=== PATIENT | female | born 1965 | race Hispanic/Latino ===

== ENCOUNTER 2018-04-21 19:11 | Observation (INO) | payer MEDICARE ==
[2018-04-21 19:11] VITALS: BMI 42.9
[2018-04-21] MEDS ORDERED: Sodium Chloride 0.9% 500 ML IV STA (20:19)
[2018-04-21 21:06] LABS: BASO # 0.04 K/mm3 (0.0-2.0); BASO % 0.3 % (0.0-3.0); EOS # 0.3 (0.0-0.7); EOS % 1.7 % (1.5-5.0); GRAN # 9.19 (1.4-6.5); GRAN % 61.4 % (50.0-68.0); HEMOGLOBIN 14.8 g/dL (12.0-16.0); LYMPH # 4.6 (1.2-3.4); LYMPH % 30.5 % (22.0-35.0); MEAN CELL VOLUME 84.8 fl (80.0-105.0); MEAN CORPUSCULAR HEMOGLOBIN 28.5 pg (25.0-35.0); MEAN CORPUSCULAR HGB CONC 33.6 g/dl (31.0-37.0); MEAN PLATELET VOLUME 8.9 fl (7.0-11.0); MONO # 0.9 (0.1-0.6); MONO % 6.1 % (1.0-6.0); RBC 5.2 10^6/uL (3.5-6.1); RED CELL DISTRIBUTION WIDTH 14.3 % (11.5-14.5)
[2018-04-21 21:16] LABS: ALB/GLOB RATIO 1.2 (1.1-1.8); ALBUMIN 4.2 g/dL (3.0-4.8); ALT/SGPT 33 U/L (7-56); AST/SGOT 29 U/L (14-36); BLOOD UREA NITROGEN 8 mg/dL (7-21); CALCIUM 9.6 mg/dL (8.4-10.5); GFR NON-AFRICAN AMERICAN 58; LIPASE 23 U/L (23-300)
[2018-04-21 23:54] LABS: PH,URINE 7.5 (4.7-8.0); URINE BILIRUBIN NEGATIVE (NEGATIVE); URINE BLOOD TRACE-INTACT (NEGATIVE); URINE GLUCOSE (UA) NEGATIVE (NEGATIVE); URINE LEUKOCYTE ESTERASE TRACE Leu/uL (NEGATIVE); URINE PROTEIN TRACE mg/dL (<30 mg/dL); URINE UROBILINOGEN 0.2 E.U./dL (<1 E.U./dL)
[2018-04-21 23:58] LABS: URINE APPEARANCE CLEAR (CLEAR); URINE COLOR YELLOW (YELLOW)
[2018-04-22 00:08] LABS: URINE AMORPHOUS SEDIMENT FEW; URINE BACTERIA RARE (NEG); URINE RBC 0 - 2 /hpf (0-2)
[2018-04-22] MEDS ORDERED: cefTRIAXone 1 gm 1 GM/100 ML BAG IVPB STA ×2 (00:44→19:00)
--- NOTE | 2018-04-22 00:44 | ED PDOC ---
Arrival/HPI <Jagdeep Rivera - Last Filed: 04/22/18 01:05> - General Historian: Patient - History of Present Illness Narrative History of Present Illness (Text): 04/22/18 01:28 52-year-old female presents today with right-sided abdominal pain that started yesterday. Patient states the pain is along the entire right side of the abdomen. She denies nausea or vomiting. Denies diarrhea or constipation. She denies fevers or chills. No chest pain or shortness of breath. She denies any urinary symptoms. Patient states the pain is localized to the right side of the abdomen and does not radiate to the back. She denies any back pain. No medications have been taken for pain at home. No other complaints <Ofelia Angelo - Last Filed: 04/22/18 01:32> - General Chief Complaint: Abdominal Pain Time Seen by Provider: 04/21/18 20:19 Past Medical History - Provider Review Nursing Documentation Reviewed: Yes - Travel History Have you recently traveled outside [place] w/in the past 3 mons?: No - Infectious Disease Hx of Infectious Diseases: None - Tetanus Immunization Tetanus Immunization: Unknown - Past Medical History Past Medical History: No Previous - Cardiac Hx Pacemaker: No - Pulmonary Hx Respiratory Disorders: No - Neurological Hx Neurological Disorder: No - HEENT Hx HEENT Disorder: No - Renal Hx Renal Disorder: Yes Hx Kidney Stones: Yes - Endocrine/Metabolic Hx Endocrine Disorders: No - Hematological/Oncological Hx Blood Disorders: No - Integumentary Hx Dermatological Disorder: No - Musculoskeletal/Rheumatological Hx Musculoskeletal Disorders: Yes Hx Arthritis: Yes - Gastrointestinal Hx Gastrointestinal Disorders: Yes Hx Gall Bladder Disease: Yes (gallstones) - Genitourinary/Gynecological Hx Genitourinary Disorders: No - Psychiatric Hx Anxiety: No Hx Bipolar Disorder: No Hx Depression: No Hx Post Traumatic Stress Disorder: No Hx Schizophrenia: No Hx Substance Use: No - Surgical History Hx Coronary Artery Bypass Graft: No Hx Coronary Stent: No Hx Tonsillectomy: Yes (ADENOIDECTOMY) Other/Comment: R ankle - Anesthesia Hx Anesthesia: Yes Hx Anesthesia Reactions: No Hx Malignant Hyperthermia: No - Suicidal Assessment Feels Threatened In Home Enviroment: No <Ofelia Angelo - Last Filed: 04/22/18 01:32> Family/Social History - Physician Review Nursing Documentation Reviewed: Yes Family/Social History: Unknown Family HX Smoking Status: Former Smoker Hx Alcohol Use: No Hx Substance Use: No Hx Substance Use Treatment: No <Ofelia Angelo - Last Filed: 04/22/18 01:32> Allergies/Home Meds <Jagdeep Rivera - Last Filed: 04/22/18 01:05> <Ofelia Angelo - Last Filed: 04/22/18 01:32> Allergies/Adverse Reactions: Allergies No Known Allergies Allergy (Verified 04/28/16 07:32) Review of Systems - Review of Systems Constitutional: absent: Fatigue, Fevers Respiratory: absent: SOB, Cough Cardiovascular: absent: Chest Pain, Palpitations Gastrointestinal: Abdominal Pain. absent: Constipation, Diarrhea, Nausea, Vomiting Genitourinary Female: absent: Dysuria, Frequency, Hematuria, Vaginal Discharge Musculoskeletal: absent: Arthralgias, Back Pain, Neck Pain Skin: absent: Rash, Pruritis Neurological: absent: Headache, Dizziness Psychiatric: absent: Anxiety, Depression, Suicidal Ideation <Ofelia Angelo - Last Filed: 04/22/18 01:32> Physical Exam Vital Signs Temp Pulse Resp BP Pulse Ox 04/21/18 20:28 85 18 132/78 96 04/21/18 19:39 98.0 F 93 H 16 134/88 95 <Jagdeep Rivera - Last Filed: 04/22/18 01:05> Vital Signs Reviewed: Yes Vital Signs Temp Pulse Resp BP Pulse Ox 04/21/18 20:28 85 18 132/78 96 04/21/18 19:39 98.0 F 93 H 16 134/88 95 Temperature: Afebrile Blood Pressure: Normal Pulse: Regular Respiratory Rate: Normal Appearance: Positive for: Well-Appearing, Non-Toxic, Comfortable Pain Distress: None Mental Status: Positive for: Alert and Oriented X 3 - Systems Exam Head: Present: Atraumatic Mouth: Present: Moist Mucous Membranes Neck: Present: Normal Range of Motion Respiratory/Chest: Present: Clear to Auscultation, Good Air Exchange. No: Re spiratory Distress, Accessory Muscle Use Cardiovascular: Present: Regular Rate and Rhythm, Normal S1, S2. No: Murmurs Abdomen: Present: Tenderness (+ minimal rlq abd tenderness). No: Distention, Peritoneal Signs, Rebound, Guarding Back: Present: Normal Inspection. No: CVA Tenderness, Midline Tenderness, Paraspinal Tenderness Upper Extremity: Present: Normal ROM Lower Extremity: Present: Normal ROM Neurological: Present: GCS=15, Speech Normal Skin: Present: Warm, Dry, Normal Color. No: Rashes Psychiatric: Present: Alert, Oriented x 3 <Ofelia Angelo - Last Filed: 04/22/18 01:32> Medical Decision Making - Lab Interpretations Lab Results: 04/21/18 21:01 04/21/18 21:01 Lab Results 04/21/18 23:44: Urine Color Yellow, Urine Appearance Clear, Urine pH 7.5, Ur Specific [place] 1.010, Urine Protein Trace H, Urine Glucose (UA) Negative, Urine Ketones Negative, Urine Blood Trace-intact H, Urine Nitrate Negative, Urine Bilirubin Negative, Urine Urobilinogen 0.2, Ur Leukocyte Esterase Trace H, Urine RBC 0 - 2, Urine WBC 1 - 3, Ur Epithelial Cells 1 - 3, Amorphous Sediment Few, Urine Bacteria Rare 04/21/18 21:01: WBC 15.0 H D, RBC 5.20, Hgb 14.8, Hct 44.1, MCV 84.8, MCH 28.5, MCHC 33.6, RDW 14.3, Plt Count 347, MPV 8.9, Gran % 61.4, Lymph % (Auto) 30.5, [place] % (Auto) 6.1 H, Eos % (Auto) 1.7, Baso % (Auto) 0.3, Gran # 9.19 H, Lymph # (Auto) 4.6 H, [place] # (Auto) 0.9 H, Eos # (Auto) 0.3, Baso # (Auto) 0.04 04/21/18 21:01: Sodium 141, Potassium 4.1, Chloride 101, Carbon Dioxide 31, Anion Gap 13, BUN 8, Creatinine 1.0, Est GFR ( Amer) > 60, Est GFR (Non- Af Amer) 58, Random Glucose 111 H, Calcium 9.6, Total Bilirubin 0.4, AST 29, ALT 33, Alkaline Phosphatase 94, Total Protein 7.8, Albumin 4.2, Globulin 3.6, Albumin/Globulin Ratio 1.2, Lipase 23 - RAD Interpretation Radiology Orders: 04/21/18 20:19 CHEST PORTABLE [RAD] Stat 04/21/18 21:01 ABD & PELVIS IV CONTRAST ONLY [CT] Stat - Medication Orders Current Medication Orders: Ceftriaxone Sodium (Rocephin 1 Gram Ivpb) 1 gm in 100 mls @ 200 mls/hr IVPB STAT STA; Protocol Stop: 04/22/18 01:13 Discontinued Medications Sodium Chloride (Sodium Chloride 0.9%) 500 mls @ 999 mls/hr IV .Q31M STA Stop: 04/21/18 20:49 Last Admin: 04/21/18 21:08 Dose: 999 mls/hr eMAR Start Stop Document 04/21/18 21:08 HI (Rec: 04/21/18 21:08 HI [id number]) Intravenous Solution Start Date 04/21/18 Start Time 21:08 Ketorolac Tromethamine (Toradol) 30 mg IVP STAT STA Stop: 04/22/18 00:45 <Jagdeep Rivera - Last Filed: 04/22/18 01:05> ED Course and Treatment: 04/22/18 00:33 Patient is nontoxic well appearing with stable vital signs presenting with right sided abdominal pain CBC wbc; 15.0 CMP: wnl Lipase wnl cxr; wnl, no free air. Urinalysis: + leukocytes, + blood CAT scan: Findings Lower thorax There is evidence of nodular scarring at the left lung base. There is scarring noted in the right lung base. Small hiatal hernia is seen. Liver Unremarkable. No gross lesion or ductal dilatation. Gallbladder and bile ducts There is a 1.8 cm peripherally calcified gallstone present. Gallbladder is partially contracted. Consider correlation with right upper quadrant ultrasound. Pancreas Unremarkable. No gross lesion or ductal dilatation. Spleen Unremarkable. Adrenals Unremarkable. No mass. Kidneys and ureters There is a 2 cm cyst present in the mid pole or the right kidney. There is a 6 x 3 mm non-obstructing calculus noted in the lower pole of the right kidney. There is a 9 x 6 mm non-obstructing calculus noted in the mid pole of the right kidney. There is a 5 x 3 mm non-obstructing calculus noted in the mid pole of the left kidney. There is a 3 x 1 mm elongated calculus noted in the proximal r ight ureter producing mild hydronephrosis. Vasculature Unremarkable. No aortic aneurysm. Bowel Incidentally noted markedly thick walled duodenum and jejunum consistent with severe entities. This is likely related to chronic inflammatory etiology. Appendix Normal appendix. Peritoneum Unremarkable. No free fluid. No free air. Lymph nodes Unremarkable. No enlarged lymph nodes. Bladder Unremarkable. Reproductive Uterus and ovaries are unremarkable. Bones No acute fracture. Other Findings None. Impression 1. A 1.8 cm peripherally calcified gallstone. Consider correlation with right upper quadrant ultrasound. 2. Multiple bilateral renal calculi and a 3 x 1 mm elongated calculus in the proximal right ureter producing mild hydronephrosis. 3. Markedly thick-walled duodenum and jejunum consistent with severe entities, likely related to chronic inflammatory etiology. 4. Evidence of nodular scarring at the left lung base and scarring in the right lung base. 5. Small hiatal hernia. Patient reassessment: pt feeling better. no distress. rocephin given IV. toradol for pain. case discussed with dr. arora; accepts admission ;will consult dr. monterroso . Discussed all results with patient in depth Impression: kidney stone, hydronephrosis, abdominal pain, leukocytosis admit to med/surg observational status - Lab Interpretations Lab Results: 04/21/18 21:01 04/21/18 21:01 Lab Results 04/21/18 23:44: Urine Color Yellow, Urine Appearance Clear, Urine pH 7.5, Ur Specific [place] 1.010, Urine Protein Trace H, Urine Glucose (UA) Negative, Urine Ketones Negative, Urine Blood Trace-intact H, Urine Nitrate Negative, Urine Bilirubin Negative, Urine Urobilinogen 0.2, Ur Leukocyte Esterase Trace H, Urine RBC 0 - 2, Urine WBC 1 - 3, Ur Epithelial Cells 1 - 3, Amorphous Sediment Few, Urine Bacteria Rare 04/21/18 21:01: WBC 15.0 H D, RBC 5.20, Hgb 14.8, Hct 44.1, MCV 84.8, MCH 28.5, MCHC 33.6, RDW 14.3, Plt Count 347, MPV 8.9, Gran % 61.4, Lymph % (Auto) 30.5, [place] % (Auto) 6.1 H, Eos % (Auto) 1.7, Baso % (Auto) 0.3, Gran # 9.19 H, Lymph # (Auto) 4.6 H, [place] # (Auto) 0.9 H, Eos # (Auto) 0.3, Baso # (Auto) 0.04 04/21/18 21:01: Sodium 141, Potassium 4.1, Chloride 101, Carbon Dioxide 31, Anion Gap 13, BUN 8, Creatinine 1.0, Est GFR ( Amer) > 60, Est GFR (Non- Af Amer) 58, Random Glucose 111 H, Calcium 9.6, Total Bilirubin 0.4, AST 29, ALT 33, Alkaline Phosphatase 94, Total Protein 7.8, Albumin 4.2, Globulin 3.6, Albumin/Globulin Ratio 1.2, Lipase 23 - RAD Interpretation Radiology Orders: 04/21/18 20:19 CHEST PORTABLE [RAD] Stat 04/21/18 21:01 ABD & PELVIS IV CONTRAST ONLY [CT] Stat - Medication Orders Current Medication Orders: Discontinued Medications Sodium Chloride (Sodium Chloride 0.9%) 500 mls @ 999 mls/hr IV .Q31M STA Stop: 04/21/18 20:49 Last Admin: 04/21/18 21:08 Dose: 999 mls/hr eMAR Start Stop Document 04/21/18 21:08 HI (Rec: 04/21/18 21:08 HI [id number]) Intravenous Solution Start Date 04/21/18 Start Time 21:08 <Ofelia Angelo - Last Filed: 04/22/18 01:32> - PA / ROLL FILLER / Resident Statement [facility] has reviewed & agrees with the documentation as recorded. [facility] has examined the patient and agrees with the treatment plan. <Jagdeep Rivera - Last Filed: 04/22/18 01:05> Disposition/Present on Arrival <Jagdeep Rivera - Last Filed: 04/22/18 01:05> - Present on Arrival Any Indicators Present on Arrival: No History of DVT/PE: No History of Uncontrolled Diabetes: No Urinary Catheter: No History of Decub. Ulcer: No History Surgical Site Infection Following: None - Disposition Have Diagnosis and Disposition been Completed?: Yes Disposition Time: 00:30 Patient Plan: Observation <Ofelia Angelo - Last Filed: 04/22/18 01:32> - Disposition Diagnosis: Kidney stone, Hydronephrosis, Leukocytosis, Abdominal pain Disposition: HOSPITALIZED Patient Problems: Current Active Problems Problem Status Onset Kidney stone Acute Condition: FAIR
--- NOTE | 2018-04-22 10:19 | CT ---
Date of service: 04/21/2018 PROCEDURE: CT Abdomen and Pelvis with and without intravenous contrast HISTORY: right sided abd pain COMPARISON: 04/13/2014 TECHNIQUE: Axial images of the abdomen were obtained in the pre contrast, portal venous and delayed phases of enhancement. Coronal and sagittal reformats were generated. Contrast dose: Radiation dose: Total exam DLP = 1134.1 mGy-cm. This CT exam was performed using one or more of the following dose reduction techniques: Automated exposure control, adjustment of the mA and/or kV according to patient size, and/or use of iterative reconstruction technique. FINDINGS: LOWER THORAX: Mild discoid atelectasis at the left base. LIVER: Unremarkable. No gross lesion or ductal dilatation. GALLBLADDER AND BILE DUCTS: Gallstones. PANCREAS: Unremarkable. No gross lesion or ductal dilatation. SPLEEN: Unremarkable. ADRENALS: Unremarkable. No mass. KIDNEYS AND URETERS: Bilateral nephrolithiasis with a questionable complex cyst in the upper pole the right kidney measuring 2.8 cm. VASCULATURE: Unremarkable. No aortic aneurysm. No aortic atherosclerotic calcification or mural plaque present. BOWEL: Unremarkable. No obstruction. No gross mural thickening. APPENDIX: Normal appendix. PERITONEUM: Unremarkable. No free fluid. No free air. LYMPH NODES: Unremarkable. No enlarged lymph nodes. BLADDER: Unremarkable. REPRODUCTIVE: Unremarkable. BONES: No acute fracture. OTHER FINDINGS: None. IMPRESSION: Bilateral nephrolithiasis with a questionable complex cyst in the upper pole the right kidney measuring 2.8 cm. Recommend correlation with MRI of the abdomen with without contrast further assessment. Gallstones
--- NOTE | 2018-04-22 10:40 | RAD ---
Date of service: 04/21/2018 HISTORY: abd pain COMPARISON: Chest radiographs 01/07/2016. FINDINGS: LUNGS: No active pulmonary disease. PLEURA: No significant pleural effusion identified, no pneumothorax apparent. CARDIOVASCULAR: No aortic atherosclerotic calcification present. Normal cardiac size. No pulmonary vascular congestion. OSSEOUS STRUCTURES: Multilevel thoracic spondylosis reiterated. Reiteration of incidentally captured anterior cervical spinal fusion hardware. VISUALIZED UPPER ABDOMEN: Normal. OTHER FINDINGS: None. IMPRESSION: No interval acute cardiopulmonary disease appreciable.
[2018-04-22] MEDS ORDERED: HYDROmorphone 2 mg/ml ISec IVP PRN (10:48)
[2018-04-22] MEDS ORDERED: Dextrose 5%/0.45% NS 1,000 ML IV SCH (11:00)
--- NOTE | 2018-04-22 11:03 | CARD ---
APPROVED REPORT Date of service: 04/21/2018 EKG Measurement Heart [id number] <Conclusion> Normal sinus rhythm Left bundle branch block No change
--- NOTE | 2018-04-22 15:11 | RAD ---
Date of service: 04/22/2018 HISTORY: STONES PASSED PAIN REDUCED COMPARISON: 04/24/2014 FINDINGS: BOWEL: Normal bowel gas pattern. 17 mm right upper quadrant calcification as well as smaller calculi, likely renal in origin. There is an eggshell calcification in the right upper quadrant most likely a calcified gallstone. No other abnormal intra-abdominal calcifications. BONES: Normal. OTHER FINDINGS: None. IMPRESSION: No active disease.
[2018-04-22] MEDS ORDERED: Midazolam 2 MG/2 ML VIAL ONE (16:58)
[2018-04-22] MEDS ORDERED: Iohexol 240 (50 ml) ONE (16:58)
[2018-04-22] MEDS ORDERED: Propofol 10 mg/ml Inj (20 ML) ONE (16:58)
[2018-04-22] MEDS ORDERED: Lidocaine PF 2% (5 ml) Inj (For Cardiac Arrhy) ONE (16:59)
[2018-04-22] MEDS ORDERED: HYDROmorphone 0.5 mg/0.5 ml ISec IVP PRN (17:32)
[2018-04-22 17:40] VITALS: O2SAT 98
[2018-04-22] MEDS ORDERED: Lactated Ringer's 1,000 ML IV SCH (17:45)
[2018-04-22 20:43] VITALS: BP 115/74; PULSE 105; RESP 20; TEMP 98.4
--- NOTE | 2018-04-23 02:09 | HP ---
HISTORY OF PRESENT ILLNESS: The patient is 52 years old, known to me from office practice, came to emergency room because of increasing right flank pain. Pain started yesterday in the epigastric and upper abdominal area. She thought she had a gas and it will pass, but the pain got worse and settled down in the right lower quadrant area. Pain got worse in intensity, so she came to emergency room for further evaluation. Denies any nausea or vomiting. No fever or chill. Denies any urine or bowel symptoms. PAST MEDICAL HISTORY: She has no significant past medical history. ALLERGIES: SHE IS NOT ALLERGIC TO ANY MEDICATION. MEDICATIONS AT HOME: She takes vitamin D 50,000 every weekly. SOCIAL HISTORY: She is , lives with her family. She used to smoke, still smokes here and there. PHYSICAL EXAMINATION: GENERAL: The patient is awake, alert, oriented and communicative. VITAL SIGNS: She is afebrile, pulse 94, respirations 17 and blood pressure 147/78. LUNGS: Bilateral fair airflow. No rhonchi or crackle. HEART: S1 and S2 audible. ABDOMEN: Soft, obese. Right lower quadrant discomfort, but no rebound or guarding. NEUROLOGIC: The patient is awake, alert, oriented and communicative. LABORATORY EXAMINATION: WBC 15, hemoglobin 14.8, hematocrit 44.1 and platelets of 347. Chemistry: Sodium 141, potassium 4.1, chloride 101, CO2 of 31, BUN 8, creatinine 1 and blood sugar of 111. Urinalysis shows trace blood and trace leukocyte. She had CT scan of the abdomen and pelvis done that shows bilateral nephrolithiasis with a questionable complex cyst in the upper pole of the right kidney measuring 2.8 cm. Recommended MRI. ASSESSMENT: 1. Nephrolithiasis. 2. Right renal cyst. 3. Renal colic. 4. The patient has 17 mm right ureteral stone. 5. Morbid obesity. PLAN: The patient was kept n.p.o. and was IV fluid and analgesic, was given dose of Rocephin. Dr. Tse was called and he recommended to have a right ureteral stent placed, that was done. The patient felt relief and she wished to go home since tomorrow is her granddaughter's birthday. So, the patient was placed in recovery room. She remains stable, hemodynamically stable. She wished to go home, so she was discharged in the late evening. She will follow with Dr. Tse and I will see her in office in a week or two. Radha Asencio MD
--- NOTE | 2018-04-25 12:33 | RAD ---
Date of service: 04/22/2018 PROCEDURE: Fluoroscopy up to 1 hr HISTORY: RETROGRADE COMPARISON: TECHNIQUE: 17.2 sec of fluoro time. Cumulative dose 11.24 mGy. 7 images submitted FINDINGS: The study shows a stone in the upper pole of the right kidney. There is placement of a ureteral stent IMPRESSION: As above
== END 2018-04-22 20:58 | disposition home or self-care (01) ==
LOC: ED 19:11 → ERH 04-22 00:46 → 3RNO 04-22 02:35
PROVIDERS: ADMIT Internal Medicine; ATTEND Internal Medicine
DX: N13.2 Hydronephrosis with renal and ureteral calculous obstruction (principal); K80.20 Calculus of gallbladder without cholecystitis without obstruction; K44.9 Diaphragmatic hernia without obstruction or gangrene; D72.829 Elevated white blood cell count, unspecified; E66.01 Morbid (severe) obesity due to excess calories; F17.200 Nicotine dependence, unspecified, uncomplicated; J98.4 Other disorders of lung; N28.1 Cyst of kidney, acquired; Z87.442 Personal history of urinary calculi; Z68.41 Body mass index [BMI] 40.0-44.9, adult
CPT/HCPCS: 52005; 52332; 71045; 74022; 74177; 80053; 81001; 83690; 85025; 87086; 93005; 96374; 99285; G0378; J0696; J1885; J2250; J2405; J2704; J3010; J7040; J7042; Q9966; Q9967

== ENCOUNTER 2018-04-28 12:32 | Day surgery (SDC) | payer MEDICARE ==
[2018-04-28 12:36] VITALS: BMI 44.6
--- NOTE | 2018-04-28 12:39 | ED PDOC ---
Arrival/HPI - General Time Seen by Provider: 04/28/18 12:34 Historian: Patient - History of Present Illness Narrative History of Present Illness (Text): 04/28/18 14:31 52-year-old female with a history of kidney stone and recent ureteral stent placement on last Wednesday presents today with dysuria and vaginal pain. Patient denies nausea vomiting diarrhea or constipation. No chest pain or shortness of breath. She denies fevers or chills. Patient states she's been eating and drinking well. Patient states over the past few days she noticed a burning sensation and intermittent sharp pain in the vaginal/urethra region. Patient denies back pain. Denies dizziness or weakness. Patient states that she spoke with Dr. Tse and was advised to come into the emergency room for a possible procedure. Past Medical History - Provider Review Nursing Documentation Reviewed: Yes - Travel History Have you recently traveled outside [place] w/in the past 3 mons?: No - Infectious Disease Hx of Infectious Diseases: None - Tetanus Immunization Tetanus Immunization: Unknown - Past Medical History Past Medical History: No Previous - Cardiac Hx Pacemaker: No - Pulmonary Hx Respiratory Disorders: No - Neurological Hx Neurological Disorder: No - HEENT Hx HEENT Disorder: No - Renal Hx Renal Disorder: Yes Hx Kidney Stones: Yes - Endocrine/Metabolic Hx Endocrine Disorders: No - Hematological/Oncological Hx Blood Transfusions: No Hx Blood Transfusion Reaction: No - Integumentary Hx Dermatological Disorder: No - Musculoskeletal/Rheumatological Hx Musculoskeletal Disorders: Yes Hx Arthritis: Yes Hx Falls: No - Gastrointestinal Hx Gastrointestinal Disorders: Yes Hx Gall Bladder Disease: Yes (gallstones) - Genitourinary/Gynecological Hx Genitourinary Disorders: No - Psychiatric Hx Anxiety: No Hx Bipolar Disorder: No Hx Depression: No Hx Post Traumatic Stress Disorder: No Hx Schizophrenia: No Hx Substance Use: No - Surgical History Hx Coronary Stent: No Other/Comment: R ankle - Anesthesia Hx Anesthesia Reactions: No Hx Malignant Hyperthermia: No - Suicidal Assessment Feels Threatened In Home Enviroment: No Family/Social History - Physician Review Nursing Documentation Reviewed: Yes Family/Social History: Unknown Family HX Smoking Status: Never Smoked Hx Alcohol Use: No Hx Substance Use: No Hx Substance Use Treatment: No Allergies/Home Meds Allergies/Adverse Reactions: Allergies No Known Allergies Allergy (Verified 04/28/16 07:32) Review of Systems - Review of Systems Constitutional: absent: Fatigue, Fevers Respiratory: absent: SOB, Cough Cardiovascular: absent: Chest Pain, Palpitations Gastrointestinal: absent: Abdominal Pain, Constipation, Diarrhea, Nausea, Vomiting Genitourinary Female: Dysuria. absent: Hematuria, Vaginal Bleeding, Vaginal Discharge Musculoskeletal: absent: Arthralgias, Back Pain, Neck Pain Skin: absent: Rash, Pruritis Neurological: absent: Headache, Dizziness Psychiatric: absent: Anxiety, Depression Physical Exam Vital Signs Reviewed: Yes Temperature: Afebrile Blood Pressure: Normal Pulse: Regular Respiratory Rate: Normal Appearance: Positive for: Well-Appearing, Non-Toxic, Comfortable Pain Distress: None Mental Status: Positive for: Alert and Oriented X 3 - Systems Exam Head: Present: Atraumatic Mouth: Present: Moist Mucous Membranes Neck: Present: Normal Range of Motion Respiratory/Chest: Present: Clear to Auscultation, Good Air Exchange. No: Respiratory Distress, Accessory Muscle Use Cardiovascular: Present: Regular Rate and Rhythm, Normal S1, S2. No: Murmurs Abdomen: No: Tenderness, Distention, Peritoneal Signs, Rebound, Guarding Genitourinary/Pelvic Exam: Present: Normal External Genitalia, Other (chaparoned by Natalie LALA EMT). No: Vaginal Discharge, Vaginal Bleeding, Vaginal Lesions Back: Present: Normal Inspection Upper Extremity: Present: Normal ROM Lower Extremity: Present: Normal ROM Neurological: Present: GCS=15 Skin: Present: Warm, Dry, Normal Color. No: Rashes Psychiatric: Present: Alert, Oriented x 3 Medical Decision Making ED Course and Treatment: 04/28/18 14:34 52-year-old female with recent kidney stone and ureteral stent placement 6 days ago. Complaining of dysuria and pain in the vagina upon urination. No signs of infection on vaginal examination. No erythema no lacerations. CBC: wnl CMP within normal limits UA positive leukocytes positive large bacteria positive yeast Case was discussed with Dr. Tse; he will take the patient to the operating room for lithotripsy. ekg; normal sinus rhythm at 80 bpm, LBBB. qtc 477. LBBB present on ekg from 09/11 cxr; wnl blood and urine cultures pending will given dose of Rocephin IV. pt is non toxic well appearing; no distress. impression; kidney stone, dysuria, uti admit to [facility]. Disposition/Present on Arrival - Present on Arrival Any Indicators Present on Arrival: No History of DVT/PE: No History of Uncontrolled Diabetes: No Urinary Catheter: No History Surgical Site Infection Following: None - Disposition Have Diagnosis and Disposition been Completed?: Yes Diagnosis: Kidney stone Disposition: HOSPITALIZED Disposition Time: 14:10 Patient Plan: Admission Patient Problems: Current Active Problems Problem Status Onset Kidney stone Acute Condition: FAIR
[2018-04-28 12:54] LABS: PH,URINE 6.5 (4.7-8.0); URINE BILIRUBIN NEGATIVE (NEGATIVE); URINE BLOOD LARGE (NEGATIVE); URINE GLUCOSE (UA) NEGATIVE (NEGATIVE); URINE LEUKOCYTE ESTERASE TRACE Leu/uL (NEGATIVE); URINE PROTEIN >=300 mg/dL (<30 mg/dL); URINE UROBILINOGEN 0.2 E.U./dL (<1 E.U./dL)
[2018-04-28 12:55] LABS: URINE APPEARANCE CLOUDY (CLEAR); URINE COLOR YELLOW (YELLOW)
[2018-04-28 13:01] LABS: URINE RBC TNTC /hpf (0-2)
[2018-04-28 13:02] LABS: URINE BACTERIA LARGE (NEG)
[2018-04-28 13:03] LABS: URINE FINE GRANULAR CAST 0 - 2 /hpf (0-2)
[2018-04-28 13:04] LABS: URINE AMORPHOUS SEDIMENT FEW; URINE COARSE GRANULAR CAST TRACE /hpf (0-2)
[2018-04-28] MEDS ORDERED: cefTRIAXone 1 gm 1 GM/100 ML BAG IVPB STA (13:48)
[2018-04-28 14:17] LABS: BASO # 0.04 K/mm3 (0.0-2.0); BASO % 0.3 % (0.0-3.0); EOS # 0.4 (0.0-0.7); EOS % 2.7 % (1.5-5.0); GRAN # 9.09 (1.4-6.5); GRAN % 66.4 % (50.0-68.0); HEMOGLOBIN 13.7 g/dL (12.0-16.0); LYMPH # 3.4 (1.2-3.4); LYMPH % 24.8 % (22.0-35.0); MEAN CELL VOLUME 85.7 fl (80.0-105.0); MEAN CORPUSCULAR HGB CONC 32.6 g/dl (31.0-37.0); MONO # 0.8 (0.1-0.6); MONO % 5.8 % (1.0-6.0); RBC 4.9 10^6/uL (3.5-6.1); RED CELL DISTRIBUTION WIDTH 14.5 % (11.5-14.5); WHITE BLOOD COUNT 13.7 10^3/uL (4.5-11.0)
[2018-04-28 14:28] LABS: INR 1.04; PARTIAL THROMBOPLASTIN TIME 30.8 Seconds (25.1-36.5)
[2018-04-28 14:30] LABS: BLOOD UREA NITROGEN 15 mg/dL (7-21); CALCIUM 9.2 mg/dL (8.4-10.5); GFR NON-AFRICAN AMERICAN > 60
[2018-04-28 14:31] LABS: ALB/GLOB RATIO 1.2 (1.1-1.8); ALT/SGPT 36 U/L (7-56); AST/SGOT 34 U/L (14-36)
[2018-04-28] MEDS ORDERED: Propofol 10 mg/ml Inj (20 ML) ONE (14:31)
--- NOTE | 2018-04-28 14:31 | RAD ---
Date of service: 04/28/2018 HISTORY: pre op COMPARISON: 04/21/2018 FINDINGS: LUNGS: No active pulmonary disease. PLEURA: No significant pleural effusion identified, no pneumothorax apparent. CARDIOVASCULAR: No aortic atherosclerotic calcification present. Normal cardiac size. No pulmonary vascular congestion. OSSEOUS STRUCTURES: No significant abnormalities. VISUALIZED UPPER ABDOMEN: Normal. OTHER FINDINGS: None. IMPRESSION: No active disease.
[2018-04-28] MEDS ORDERED: Midazolam 2 MG/2 ML VIAL ONE (14:32)
[2018-04-28] MEDS ORDERED: Lidocaine PF 2% (5 ml) Inj (For Cardiac Arrhy) ONE (14:32)
[2018-04-28] MEDS ORDERED: Sevoflurane - Inhalation Anesthetic Liq (250 ml) ONE (14:37)
[2018-04-28] MEDS ORDERED: cefTRIAXone (Rocephin) 1 gm Inj ONE (14:44)
[2018-04-28] MEDS ORDERED: Iohexol 240 (50 ml) ONE (14:45)
[2018-04-28] MEDS ORDERED: HYDROmorphone 0.5 mg/0.5 ml ISec IVP PRN (15:57)
[2018-04-28] MEDS ORDERED: Lactated Ringer's 1,000 ML IV SCH (16:00)
[2018-04-28] MEDS ORDERED: Gentamicin 160 MG in Sodium Chloride 0.9% 100 ML IVPB SCH (16:30)
[2018-04-28 17:17] VITALS: BP 141/76; PULSE 88; RESP 20; TEMP 98.1; O2SAT 97
--- NOTE | 2018-04-28 18:19 | CARD ---
APPROVED REPORT Date of service: 04/28/2018 EKG Measurement Heart [id number] <Conclusion> Normal sinus rhythm Left bundle branch block Abnormal ECG
--- NOTE | 2018-04-29 12:41 | RAD ---
Date of service: 04/28/2018 PROCEDURE: Fluoroscopy up to 1 hr HISTORY: STENT REMOVAL / LASER LITHOTRIPSY (RIGHT) COMPARISON: TECHNIQUE: 42.1 sec of fluoro time. Cumulative dose 21.09 mGy. 14 images submitted FINDINGS: The study shows placement of a wire and instrument in the right ureter and collecting system with placement of a ureteral stent on the final films. A stone is seen in the upper pole of the right kidney IMPRESSION: As above
--- NOTE | 2018-06-06 13:04 | OP ---
PROCEDURE DATE: 04/28/2018 UROLOGY OPERATIVE NOTE PREOPERATIVE DIAGNOSES: Urolithiasis, hydronephrosis, severe renal colic, and hematuria. POSTOPERATIVE DIAGNOSES: Urolithiasis, hydronephrosis, severe renal colic, and hematuria. PROCEDURE: Cystoscopy, a ureteroscopy on the right side, right leg lithotripsy with holmium YAG laser. COMPLICATIONS: There were no complications. At the termination of the procedure, we left the double J stent. There were no complications. INDICATIONS: See the history and physical for further details. A very pleasant lady with renal colic. She is a 52-year-old lady. We discussed various options with various locations to treat the patient. For various reasons, she is here now for the above-listed procedure. UROLOGY OPERATIVE FINDINGS: Basically stone that we were able to laser without difficulty. There were no complications. No other abnormality appreciated. DESCRIPTION OF PROCEDURE: After obtaining informed consent, the patient was placed on the table. Routine monitor utilized. Time-out was called. We confirmed the patient's positioning. Antibiotic prophylaxis was used. The cystoscope was introduced via the urethra without difficulty. The ureteral orifice was identified. We ____ procedure continued, we introduced the short rigid ureteroscope via the urethra without difficulty. We identified the stones. We now provided holmium YAG laser energy to the stone until we fragmented it into small pieces. We broke the stone without too much difficulty. Overall, the patient tolerated the procedure well. At this point, once did this, we passed a double J stent up to the kidney. The patient tolerated this without complications. Niranjan Tse MD
== END 2018-04-28 19:07 | disposition home or self-care (01) ==
LOC: ED 12:32 → SDS 14:22
PROVIDERS: ATTEND Urology
DX: N13.2 Hydronephrosis with renal and ureteral calculous obstruction (principal); R40.2412 Glasgow coma scale score 13-15, at arrival to emergency department; I44.7 Left bundle-branch block, unspecified
CPT/HCPCS: 52356; 71045; 80053; 81001; 85025; 85610; 85730; 86850; 86900; 87040; 93005; 99284; A4358; C1769; C2617; J0696; J1580; J2250; J2704; J3010; J7120 ×2; Q9966

== ENCOUNTER 2018-04-28 23:03 | Emergency (ER) | payer MEDICARE ==
[2018-04-28 23:48] VITALS: BMI 43.7
[2018-04-29 00:06] VITALS: RESP 18; TEMP 97.6
--- NOTE | 2018-04-29 00:52 | ED PDOC ---
Arrival/HPI - General Chief Complaint: Female Genitourinary Time Seen by Provider: 04/29/18 00:42 Historian: Patient - History of Present Illness Narrative History of Present Illness (Text): 04/29/18 00:44 52 year old female with a history of kidney stone and recent R ureter stent placement on last Wednesday with Dr. Chen Tse, presents today with hematuria and urinary incontinence. Patient had laser done of her stones earlier today with Dr. Tse and then had same day surgery to have her ureter stent "changed." In recovery of SDS, patient had an episode of urinary incontinence and hematuria, therefore a pastor with leg bag was placed. Patient reports at home, the leg bag is filling with bloody urine, she called Dr. Tse and was sent to the ER. Patient denies any fever, chills, back pain, abdominal pain, nausea, vo miting, diarrhea, or any other complaints. Time/Duration: 24 hours Symptom Course: Unchanged Past Medical History - Provider Review Nursing Documentation Reviewed: Yes - Infectious Disease Hx of Infectious Diseases: None - Tetanus Immunization Tetanus Immunization: Unknown - Past Medical History Past Medical History: No Previous - Cardiac Hx Pacemaker: No - Pulmonary Hx Respiratory Disorders: No - Neurological Hx Neurological Disorder: No - HEENT Hx HEENT Disorder: No - Renal Hx Renal Disorder: Yes Hx Kidney Stones: Yes - Endocrine/Metabolic Hx Endocrine Disorders: No - Hematological/Oncological Hx Blood Transfusions: No Hx Blood Transfusion Reaction: No - Integumentary Hx Dermatological Disorder: No - Musculoskeletal/Rheumatological Hx Musculoskeletal Disorders: Yes Hx Arthritis: Yes Hx Falls: No - Gastrointestinal Hx Gastrointestinal Disorders: Yes Hx Gall Bladder Disease: Yes (gallstones) - Genitourinary/Gynecological Hx Genitourinary Disorders: No - Psychiatric Hx Anxiety: No Hx Bipolar Disorder: No Hx Depression: No Hx Post Traumatic Stress Disorder: No Hx Schizophrenia: No Hx Substance Use: No - Surgical History Hx Coronary Stent: No Other/Comment: R ankle - Anesthesia Hx Anesthesia Reactions: No Hx Malignant Hyperthermia: No - Suicidal Assessment Feels Threatened In Home Enviroment: No Family/Social History - Physician Review Nursing Documentation Reviewed: Yes Family/Social History: No Known Family HX Smoking Status: Never Smoked Hx Alcohol Use: No Hx Substance Use: No Hx Substance Use Treatment: No Allergies/Home Meds Allergies/Adverse Reactions: Allergies No Known Allergies Allergy (Verified 04/28/16 07:32) Home Medications: Home Meds Medication Instructions Recorded Confirmed Acetaminophen with Codeine 1 tab PO Q4H PRN 04/28/18 04/28/18 [Tylenol with Codeine No. 3 300 mg-30 mg] Tamsulosin [Flomax] 0.4 mg PO DAILY 04/28/18 04/28/18 levoFLOXacin [Levaquin] 500 mg PO DAILY 04/28/18 04/28/18 Review of Systems - Physician Review All systems were reviewed & negative as marked: Yes - Review of Systems Constitutional: absent: Fevers, Night Sweats Gastrointestinal: absent: Abdominal Pain, Diarrhea, Nausea, Vomiting Genitourinary Female: Dysuria, Hematuria Musculoskeletal: absent: Back Pain Physical Exam Vital Signs Reviewed: Yes Vital Signs Temp Pulse Resp BP Pulse Ox 04/29/18 00:05 97.6 F 103 H 18 120/62 97 Temperature: Afebrile Blood Pressure: Normal Pulse: Tachycardic Respiratory Rate: Normal Appearance: Positive for: Well-Appearing, Non-Toxic, Comfortable Pain Distress: None Mental Status: Positive for: Alert and Oriented X 3 - Systems Exam Head: Present: Atraumatic, Normocephalic Pupils: Present: PERRL Extroacular Muscles: Present: EOMI Conjunctiva: Present: Normal Mouth: Present: Moist Mucous Membranes Neck: Present: Normal Range of Motion Respiratory/Chest: Present: Clear to Auscultation, Good Air Exchange. No: Respiratory Distress, Accessory Muscle Use Cardiovascular: Present: Regular Rate and Rhythm, Normal S1, S2. No: Murmurs Abdomen: No: Tenderness, Distention, Peritoneal Signs, Rebound, Guarding Genitourinary/Pelvic Exam: Present: Normal External Genitalia, Other (+pastor catheter in place and stent placed with strings attaced. 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 No: CVA Tenderness, Midline Tenderness Upper Extremity: Present: Normal Inspection. No: Cyanosis, Edema Lower Extremity: Present: Normal Inspection. No: Edema Neurological: Present: GCS=15, CN II-XII Intact, Speech Normal Skin: Present: Warm, Dry, Normal Color. No: Rashes Psychiatric: Present: Alert, Oriented x 3, Normal Insight, Normal Concentration Medical Decision Making ED Course and Treatment: 04/29/18 00:50 Impression: 52 year old female presents with hematuria and urinary incontinence. Plan: -- Reassess and disposition -- Consult Dr. Tse Prior Visits: Notes and results from previous visits were reviewed. Progress Notes: 04/29/18 00:30 Case d/w Dr. Tse, requests to have pastor and stent removed and to call him back immediately. 00:45 Dr. Tse called back, states that the patient can be d/c as long as she can void on her own without difficulty and pain. Patient able to void without pain, reports no abdominal pain or flank pain. Patient feels comfortable going home, she is smiling, is in good spirits. Advised to follow up with Dr. Tse in 1-2 days without fail. Return to the emergency room at any time for any new or worsening symptoms. Patient states she fully agrees with and understands discharge instructions. States that she agrees with the plan and disposition. Verbalized and repeated discharge instructions and plan. I have given the patient opportunity to ask any additional questions. - PA / INVENTORY COORDINATOR / Resident Statement MD/DO has reviewed & agrees with the documentation as recorded. - Scribe Statement The provider has reviewed the documentation as recorded by the Indigo Arias Provider Scribe Attestation: All medical record entries made by the Indigo were at my direction and personally dictated by me. I have reviewed the chart and agree that the record accurately reflects my personal performance of the history, physical exam, medical decision making, and the department course for this patient. I have also personally directed, reviewed, and agree with the discharge instructions and disposition. Disposition/Present on Arrival - Present on Arrival Any Indicators Present on Arrival: No History of DVT/PE: No History of Uncontrolled Diabetes: No Urinary Catheter: No History of Decub. Ulcer: No History Surgical Site Infection Following: None - Disposition Have Diagnosis and Disposition been Completed?: Yes Diagnosis: Hematuria Disposition: HOME/ ROUTINE Disposition Time: 01:30 Patient Plan: Discharge Patient Problems: Current Active Problems Problem Status Onset Kidney stone Acute Condition: STABLE Discharge Instructions (ExitCare): Blood in the Urine (Hematuria) in Adults Additional Instructions: Thank you for letting us take care of you today. You were treated for hematuria. The emergency medical care you received today was directed at your acute symptoms. Return to the Emergency Department if your symptoms worsen, do not improve, or if you have any other problems. Please contact Dr. Tse in 2 days for re-evaluation and follow up. Bring any paperwork you were given at discharge with you along with any medications you are taking to your follow up visit. Our treatment cannot replace ongoing medical care by a primary care provider (PCP) outside of the emergency department. Thank you for allowing the [facility] team to be part of your care today. Referrals: Radha Asencio MD [Primary Care Provider] - Follow up with primary Forms: [email or web address] (German), WORK NOTE
[2018-04-29 02:09] VITALS: BP 121/85; PULSE 92; O2SAT 100
== END 2018-04-29 01:45 | disposition home or self-care (01) ==
LOC: ED 23:03
DX: R31.9 Hematuria, unspecified (principal)